=== PATIENT | male | born 1975 | race Caucasian/White ===

== ENCOUNTER 2019-01-11 12:54 | Inpatient (IN) ==
--- NOTE | 2019-01-11 13:30 | Emergency Department Note ---
Disposition Clinical Impression: Suicidal ideation Depression Qualifiers: Depression Type: unspecified Qualified Code(s): F32.9 - Major depressive disorder, single episode, unspecified Disposition: Admitted As Inpatient Condition: Good Referrals: Darling Mueller CNP [Primary Care Provider] - Forms: ED Satisfaction Letter Time of Disposition: 16:50 General Adult HPI - General Chief complaint: ED Psychiatric Symptoms Stated complaint: psych eval,SI Time Seen by Provider: 01/11/19 13:04 Source: patient Mode of arrival: ambulatory Limitations: no limitations Nursing Notes Reviewed: Yes Vital Signs Reviewed: Yes - History of Present Illness HPI Narrative: Patient is a 43-year-old male that presents emergency Department secondary to suicidal ideation. Patient states that he is been going through a divorce and was stressed out today and had a bottle of indomethacin which she was considering taking for a drug overdose. Patient's girlfriend stopped him prior to being able to take the medication. Patient states that he is still feeling suicidal. Patient has any homicidal ideation. Patient denies any auditory of visual hallucinations. Patient states that he did overdose as a teenager had to be admitted to the hospital. Patient states that he has been admitted multiple times for mental health purposes. [facility] he has not been there in 2 months. Patient also states that he has been off his medications for approximately 2 months. Pain Scale: 0 - Related Data Allergies Allergy/AdvReac Type Severity Reaction Status Date / Time shellfish derived Allergy See Verified 01/11/19 12:58 Comments All systems ED: reviewed and negative except as stated. Constitutional: Denies: fever Cardiovascular: Denies: chest pain Respiratory: Denies: dyspnea Gastrointestinal: Denies: abdominal pain Genitourinary: Denies: dysuria, frequency Neurological: Denies: weakness, numbness, paresthesias Psychiatric: Reports: depression, suicidal thoughts. Denies: homicidal thoughts, auditory hallucinations, visual hallucinations Past Medical History - Past Medical History Medical history: Reports: no medical history Psychiatric history: Reports: anxiety, bipolar, depression, PTSD, prior suicide attempt, previous psychiatric hospitalization - Social History Smoking Status: Current every day smoker Alcohol use: Reports: occasionally Drug use: Reports: none Physical Exam - General Limitations: no limitations General appearance: alert, in no apparent distress - Head Head exam: atraumatic, normocephalic - Eye Eye exam: Present: normal appearance, EOMI - Neck Neck exam: Present: normal inspection, full ROM, trachea midline - Respiratory Respiratory exam: Present: normal lung sounds bilaterally. Absent: respiratory distress, wheezes - Cardiovascular Cardiovascular exam: Present: regular rate, normal rhythm, normal heart sounds, +S1, +S2 - Abdominal Exam Abdominal exam: Present: soft, Non-Tender, normal bowel sounds - Neurological Exam Neurological exam: Present: alert, oriented X3 - Psychiatric Psychiatric exam: Present: normal affect, normal mood - Skin Skin exam: Present: warm, dry, intact Course Vital Signs Temperature 98.3 F 01/11/19 12:55 Pulse Rate 92 01/11/19 12:55 Respiratory Rate 16 01/11/19 12:55 Blood Pressure 139/91 01/11/19 12:55 O2 Sat by Pulse Oximetry 98 01/11/19 12:55 Temperature 98.3 F 01/11/19 12:55 Pulse Rate 92 01/11/19 12:55 Respiratory Rate 16 01/11/19 12:55 Blood Pressure 139/91 01/11/19 12:55 O2 Sat by Pulse Oximetry 98 01/11/19 12:55 Oxygen Delivery Oxygen Delivery Room Air Medical Decision Making - MDM Narrative Medical decision making narrative: Due to the patient is not emergency department with suicidal ideation and pink slip will be placed on the patient's chart. The patient will also have a a medical screening exam and workup done here in the emergency department. Once the patient is deemed medically cleared our mental health team from will come and evaluate the patient at bedside. 1650 hrs.: 1A has finished their evaluation they are speaking with psychiatry and waiting further plan. 165 the psychiatry team notified us that they would be admitting the patient to the service. Patient has a pink slip on the chart. Patient will be admitted to the hospital at this time for further evaluation and management. - Medical Records Medical records reviewed: Yes I reviewed the patient's medical records. - Lab Data Lab results reviewed: Yes I reviewed the patient's lab results. Result diagrams: 01/11/19 13:35 01/11/19 13:35 Lab Results 01/11/19 01/11/19 01/11/19 Range/Units 13:11 13:11 13:35 WBC 12.8 H (4.3-11.1) K/mcL RBC 5.29 (4.19-5.50) M/mcL Hgb 15.5 (12.9-16.9) g/dL Hct 47.1 (37.5-50.1) % MCV 89.0 (83.0-100.0) fL MCH 29.3 (28.0-33.3) pg MCHC 32.9 (31.6-35.5) g/dL RDW 13.3 (11.5-14.5) % Plt Count 215 (140-400) K/mcL MPV 9.8 (9.4-12.4) fL Immature Gran % 0.5 (0-4) % Seg Neutrophils % 39.2 % Lymphocytes % 52.2 % Monocytes % 6.3 % Eosinophils % 1.3 % Basophils % 0.5 % Neutrophils # 5.0 (1.6-8.9) K/mcL Lymphocytes # 6.7 H (0.6-4.6) K/mcL Monocytes # 0.8 (0.0-1.3) K/mcL Eosinophils # 0.2 (0.0-0.6) K/mcL Basophils # 0.1 (0.0-0.2) K/mcL Sodium (136-145) mEq/L Potassium (3.5-5.1) mEq/L Chloride (98-107) mEq/L Carbon Dioxide (23-29) mEq/L BUN (6-20) mg/dL Creatinine (0.70-1.30) mg/dL Est GFR ( Amer) (> 60) Est GFR (Non-Af Amer) (> 60) BUN/Creatinine Ratio (6-26) Glucose (70-105) mg/dL Calculated Osmolality (280-300) Calcium (8.6-10.3) mg/dL Urine Color Yellow (Yellow) Urine Clarity Clear (Clear) Urine pH 7.5 (5.0-8.0) pH Units Ur Specific [place] 1.023 (1.010-1.025) Urine Protein Negative (Neg-Trace) mg/dL Urine Glucose (UA) Normal (Normal) mg/dL Urine Ketones Negative (Negative) mg/dL Urine Blood Negative (Negative) Urine Nitrite Negative (Negative) Urine Bilirubin Negative (Negative) Urine Urobilinogen Normal (Normal) mg/dL Ur Leukocyte Esterase Negative (Negative) Salicylates (15.0-30.0) mg/dL Urine Opiates Screen Negative (Ebepgk=393) ng/mL Ur Buprenorphine Scrn Negative (Cutoff=5) ng/mL Acetaminophen (10-20) mcg/mL Ur Barbiturates Screen Negative (Peznki=711) ng/mL Ur Phencyclidine Scrn Negative (Cutoff=25) ng/mL Ur Amphetamines Screen Negative (Bhthsj=7704) ng/mL U Benzodiazepines Scrn Negative (Jkgpnb=675) ng/mL Urine Cocaine Screen Negative (Cutoff= 300) ng/mL U Marijuana (THC) Screen Negative (Cutoff = 50) ng/mL Ur Drug Screen Interp See Below Ethyl Alcohol (Less than 10) mg/dL 01/11/19 Range/Units 13:35 WBC (4.3-11.1) K/mcL RBC (4.19-5.50) M/mcL Hgb (12.9-16.9) g/dL Hct (37.5-50.1) % MCV (83.0-100.0) fL MCH (28.0-33.3) pg MCHC (31.6-35.5) g/dL RDW (11.5-14.5) % Plt Count (140-400) K/mcL MPV (9.4-12.4) fL Immature Gran % (0-4) % Seg Neutrophils % % Lymphocytes % % Monocytes % % Eosinophils % % Basophils % % Neutrophils # (1.6-8.9) K/mcL Lymphocytes # (0.6-4.6) K/mcL Monocytes # (0.0-1.3) K/mcL Eosinophils # (0.0-0.6) K/mcL Basophils # (0.0-0.2) K/mcL Sodium 139 (136-145) mEq/L Potassium 3.7 (3.5-5.1) mEq/L Chloride 105 (98-107) mEq/L Carbon Dioxide 27 (23-29) mEq/L BUN 11 (6-20) mg/dL Creatinine 0.93 (0.70-1.30) mg/dL Est GFR ( Amer) > 60 (> 60) Est GFR (Non-Af Amer) > 60 (> 60) BUN/Creatinine Ratio 12 (6-26) Glucose 100 (70-105) mg/dL Calculated Osmolality 287 (280-300) Calcium 9.4 (8.6-10.3) mg/dL Urine Color (Yellow) Urine Clarity (Clear) Urine pH (5.0-8.0) pH Units Ur Specific [place] (1.010-1.025) Urine Protein (Neg-Trace) mg/dL Urine Glucose (UA) (Normal) mg/dL Urine Ketones (Negative) mg/dL Urine Blood (Negative) Urine Nitrite (Negative) Urine Bilirubin (Negative) Urine Urobilinogen (Normal) mg/dL Ur Leukocyte Esterase (Negative) Salicylates < 2.5 L (15.0-30.0) mg/dL Urine Opiates Screen (Khaxew=286) ng/mL Ur Buprenorphine Scrn (Cutoff=5) ng/mL Acetaminophen < 10 L (10-20) mcg/mL Ur Barbiturates Screen (Bpkhjn=940) ng/mL Ur Phencyclidine Scrn (Cutoff=25) ng/mL Ur Amphetamines Screen (Yhbpaj=7418) ng/mL U Benzodiazepines Scrn (Jrghlx=892) ng/mL Urine Cocaine Screen (Cutoff= 300) ng/mL U Marijuana (THC) Screen (Cutoff = 50) ng/mL Ur Drug Screen Interp Ethyl Alcohol < 10 (Less than 10) mg/dL
[2019-01-11 13:47] LABS: Bilirubin,Urine Negative (Negative); Blood,Urine Negative (Negative); Clarity,Urine Clear (Clear); Color,Urine Yellow (Yellow); Glucose,Urine (UA) Normal (Normal); Ketones,Urine Negative (Negative); Leukocyte Esterase,Urine Negative (Negative); Nitrite,Urine Negative (Negative); PH,Urine 7.5 pH Units (5.0-8.0); Protein,Urine Negative (Neg-Trace); Specific Gravity,Urine 1.023 (1.010-1.025); Urobilinogen,Urine Normal (Normal)
[2019-01-11 13:54] LABS: Basophils # 0.1 K/mcL (0.0-0.2); Basophils % 0.5 %; Eosinophils # 0.2 K/mcL (0.0-0.6); Eosinophils % 1.3 %; Hematocrit 47.1 % (37.5-50.1); Hemoglobin 15.5 g/dL (12.9-16.9); Immature Granulocytes % 0.5 % (0-4); Lymphocytes # 6.7 K/mcL (0.6-4.6); Lymphocytes % 52.2 %; Mean Corpuscular HGB Conc 32.9 g/dL (31.6-35.5); Mean Corpuscular Hemoglobin 29.3 pg (28.0-33.3); Mean Platelet Volume 9.8 fL (9.4-12.4); Monocytes # 0.8 K/mcL (0.0-1.3); Monocytes % 6.3 %; Platelet Count 215 K/mcL (140-400); Red Blood Count 5.29 M/mcL (4.19-5.50); Red Cell Distribution Width 13.3 % (11.5-14.5); Segmented Neutrophils % 39.2 %; White Blood Count 12.8 K/mcL (4.3-11.1)
[2019-01-11 14:11] LABS: Amphetamine Screen,Urine Negative ng/mL (Cutoff=1000); Barbiturate Screen,Urine Negative ng/mL (Cutoff=200); Benzodiazepines Screen,Urine Negative ng/mL (Cutoff=200); Cannabinoid Screen,Urine Negative ng/mL (Cutoff = 50); Cocaine Screen,Urine Negative ng/mL (Cutoff= 300); Opiate Screen,Urine Negative ng/mL (Cutoff=300); Phencyclidine Screen,Urine Negative ng/mL (Cutoff=25)
[2019-01-11 14:19] LABS: Acetaminophen < 10 mcg/mL (10-20); BUN/Creatinine Ratio 12 (6-26); Blood Urea Nitrogen 11 mg/dL (6-20); Calcium 9.4 mg/dL (8.6-10.3); Carbon Dioxide 27 mEq/L (23-29); Chloride 105 mEq/L (98-107); Ethanol < 10 mg/dL (Less than 10); Glucose 100 mg/dL (70-105); Osmolality,Calculated 287 (280-300); Potassium 3.7 mEq/L (3.5-5.1); Salicylate < 2.5 mg/dL (15.0-30.0); Sodium 139 mEq/L (136-145); eGFR For African Americans > 60 (> 60); eGFR For Non-African Americans > 60 (> 60)
[2019-01-11] MEDS ORDERED: MOM Conc 10 ML UD.LIQ PO PRN (17:54)
[2019-01-11] MEDS ORDERED: *HR* LORazepam 2 MG/ML VIAL IM PRN (17:54)
[2019-01-11] MEDS ORDERED: *HR* LORazepam 1 MG TABLET PO PRN (17:54)
[2019-01-11] MEDS ORDERED: traZODone 50 MG TABLET PO PRN (17:54)
[2019-01-11] MEDS ORDERED: Haloperidol Lactate 5 MG/ML VIAL IM PRN (17:54)
[2019-01-11] MEDS ORDERED: Ibuprofen 400 MG TABLET PO PRN (17:54)
[2019-01-11] MEDS ORDERED: Mag Hydrox/Al Hydrox/Simeth 30 ML UDC PO PRN (17:54)
[2019-01-11] MEDS: hydrOXYzine pamoate 25 MG CAPSULE PO PRN (21:56)
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
[2019-01-12 14:23] LABS: Thyroid Stimulating Hormone 0.822 mcIU/mL (0.340-5.600)
[2019-01-12] MEDS: hydrOXYzine pamoate 25 MG CAPSULE PO PRN (15:15)
[2019-01-12] MEDS: Lithium Oral Soln 300 MG/5 ML UDC PO SCH (21:23)
[2019-01-13 08:41] VITALS: BP 112/79
[2019-01-13] MEDS ORDERED: Lithium Carbonate 300 MG CAPSULE PO SCH (09:30)
--- NOTE | 2019-01-13 09:34 | Discharge Summary ---
Date of Encounter: 01/13/19 Time of Encounter: 09:30 Diagnosis - Discharge Diagnosis (1) Major depressive disorder Status: Acute Qualifiers: Major depression recurrence: recurrent Active/Remission status: currently active Major depression episode severity: severe Psychotic features: without psychotic features Qualified Code(s): F33.2 - Major depressive disorder, recurrent severe without psychotic features Medications - Discharge Medications Prescriptions: Greenup Carbonate 300 mg PO BID #60 capsule traZODone [TraZODone] 50 mg PO HS PRN #30 tablet PRN Reason: Insomnia hydrOXYzine pamoate [Vistaril] 25 mg PO TID PRN #90 capsule PRN Reason: Anxiety Greenup Carbonate 300 mg PO BID #60 capsule 01/13/19 [Rx] hydrOXYzine pamoate [Vistaril] 25 mg PO TID PRN #90 capsule 01/13/19 [Rx] traZODone [TraZODone] 50 mg PO HS PRN #30 tablet 01/13/19 [Rx] Allergy/AdvReac Type Severity Reaction Status Date / Time Iodinated Contrast- Oral and AdvReac Vomiting Verified 01/11/19 20:30 IV Dye Results Procedures and tests throughout hospitalization: Completed Lab Orders Category Date Time Status Acetaminophen Stat Lab 01/11/19 13:35 Completed Basic Metabolic Panel Stat Lab 01/11/19 13:35 Completed Complete Blood Count [HEME] Stat Lab 01/11/19 13:35 Completed Drug Screen, Urine [UCHEM] Stat Lab 01/11/19 13:11 Completed Ethanol Stat Lab 01/11/19 13:35 Completed Salicylate Stat Lab 01/11/19 13:35 Completed Thyroid Stimulating Hormone Routine Lab 01/12/19 11:16 Completed Thyroxine (T4) Free Routine Lab 01/12/19 11:16 Completed Urinalysis reflex Microscopic [URIN] Stat Lab 01/11/19 13:11 Completed Provider Date of admission: 01/11/19 17:03 Primary care physician: PCP NONE Discharging clinician: Suzie Almanzar Psychiatry Exam - Constitutional Vitals: Temp Pulse Resp BP Pulse Ox 97.8 F 71 16 112/79 97 01/13/19 08:40 01/13/19 08:40 01/13/19 08:40 01/13/19 08:40 01/13/19 08:40 General appearance: age & developmentally appropriate, well-groomed, well- nourished - Musculoskeletal Gait: normal Station: relaxed Strength & Tone: normal for patient - Psychiatric Patient Orientation: Yes Person, Yes Time, Yes Place Level of alertness: Alert Behavior: calm, cooperative Psychomotor activity: Normal Eye Contact: Maintains Eye Contact Mood Description: Euthymic/stable Affect description: congruent with mood, full range Speech Volume: Normal Speech pattern: normal rate, normal rhythm, normal tone, fluent, spontaneous Language & Vocabulary: consistent with education Thought Process: Linear, Goal Oriented Thought Content: No Suicidal ideation, No Homicidal ideation, No Overt delusions Perceptual Disturbances: No Auditory hallucinations, No Visual hallucinations Attention Span Ability: Capable of Focused Attention Memory Description: Grossly Intact Patient Reliability: Reliable Historian Fund of knowledge: Yes abstraction ability, Yes aware of current events Intelligence Estimate: Average Judgment: Limited Insight: Partial Hospital Course Hospital course: Mr. Argueta is a 43 year old male who was admitted for SI. Client stated at the time of admission that there was a lot of drama at home and he just needed a mental health break. He has been living under the same roof as his and her sister. He is romantically involved with both but his is unaware. Client is in the process of his and stated what he really needs is his own place. Client was initially saying he needed to be in the hospital for several days to get himself to a place where he is able to cope with the dynamics at home. However, this morning client is already reporting feeling much better. He found out he has a job interview tomorrow for a position he really wants. He is goal oriented and states his plan is to work and safe enough money to get his own place in [place]. He is able to return home in the meantime. Client reported past success with Greenup and asked to restart this medication this admission. Greenup was restarted with good clinical results. He will be given a script to get a Greenup level in four days time. Today client is bright, reactive, and future oriented. He is denying SI, intent, or plan. He is denying HI/AH/VH. Participated in groups. Pleasant toward staff and peers. Slept and ate well. Looks stable for discharge. Total time spent with client greater than 30 minutes. Patient was educated of his diagnosis and the risks, benefits, and side effects of this treatment and alternative treatment options and was monitored for responsiveness and side effects. Mood, anxiety, sleep, appetite, and interest improved, as did future orientation. Self-harm thoughts subsided, thinking cleared, psychosis resolved, and mood stabilized. Patient was able to attend both individual and group therapy sessions as well as meeting with the psychiatrist daily and urged to discuss any medication or treatment issues or other concerns. The patient was educated primarily by verbal means about their diagnosis and manifestations in their life. The option for treatment including group and individual therapy programming was offered to the patient in the use of medications with all their potential risks, benefits, and side effects were discussed with the patient at length. The patient was given the opportunity to ask questions and was noted to participate in the treatment in the planning process. The patient felt ready and eager to be discharged from the inpatient psychiatric unit to continue on with treatment as an outpatient. The patient agreed that he is safe for this disposition. The patient was considered to be able to participate in informed consent and decision making with respect to medical, legal, and financial issues of the time of discharge. At the time of discharge the patient adamantly denied any concerns for lethality including suicidal or homicidal thoughts ideations or plans and was future oriented toward ongoing mental health care, medical follow-up and sobriety. - Time Spent with Patient Total time spent providing and/or coordinating discharge services: Greater than 30 minutes Assessment and Plan - Patient/Caregiver Discharge Instructions Activity: resume usual activities as tolerated Diet: regular diet - Follow up Plan Follow up with: NONE,PCP [Primary Care Provider] - Functional capacity at discharge: independent ambulation Overall status at discharge: Stable Disposition: Home, Self-Care Quality - Multiple Antipsychotics Patient discharged on 2 or more antipsychotic medications: No Procedures - Procedures Procedures: Medication Management, Crisis Stabilization, Supportive Therapy, Group Therapy
[2019-01-13] MEDS: hydrOXYzine pamoate 25 MG CAPSULE PO PRN (09:53)
[2019-01-13] MEDS: Lithium Oral Soln 300 MG/5 ML UDC PO SCH (10:52)
== END 2019-01-13 11:15 | disposition home or self-care (01) | DRG 751 ==
LOC: EMEROOARM 12:54 → 1ANU 17:03
PROVIDERS: ADMIT Psychiatry & Neurology Psychiatry; ATTEND Psychiatry & Neurology Psychiatry